=== PATIENT | female | born 1930 | race Caucasian/White ===

== ENCOUNTER → 2017-09-26 | Outpatient (CLI) | payer OTHER ==
[~2017-09-26] MED LIST: AMLO10 PO; AMLO5 PO; ATEN25 PO; Antivert25 MG PO; Aspir 8181 MG PO; Aspir-Low81 MG PO; BP MED; CALCAVITD PO; CENTRUM SILVER1 EAC2 PO; CLOP75 PO; FISH OIL 1,2001 EACH PO; HYDACE5 PO; HYDCHL12.5 PO; LOSA50 PO; MELO7.5 PO; METO25 PO; MULVITMINF PO; OMEP20ER PO; PRAV20 PO; Prilosec Otc20 MG PO; SULF10OPSA OD; SULF10OPSA OS; SULF10OPSA OU; SUPER CALCIUM1 EACH PO; TRIA80TC TOP; Zofran4 MG PO; [UNRECOGNIZED DRUG - OTHER]
[2017-09-26 12:47] LABS: Source, Urine Clean Catch
[2017-09-26 14:11] LABS: Uric Acid Crystals Few /hpf
[2017-09-26 14:12] LABS: Amorphous Mod (0-Heavy)
[2017-09-26 14:13] LABS: Red Blood Cells, Urine 0-2 /hpf (0-2); White Blood Cells, Urine 0-2 /hpf (0-5)
[2017-09-26 14:14] LABS: Bacteria Few /hpf; Squamous Epithelial Cells Not Seen /hpf (Few)
[2017-09-26 16:05] LABS: Protein, Urine Random 25.9 mg/dL (0.0-11.9)
== END | disposition home or self-care (01) ==
LOC: OLS 12:26 → LAB SHORT 12:26
PROVIDERS: Internal Medicine
DX: N28.9 Disorder of kidney and ureter, unspecified (principal)
CPT/HCPCS: 81015; 82570; 84156

== ENCOUNTER 2018-12-10 16:02 | Emergency (ER) | payer OTHER ==
[~2018-12-10] VITALS: Ht 165.1 cm; Wt 51.7 kg
[~2018-12-10 16:02] MED LIST changes: +Amlodipine Bes2.5 MG PO
[2018-12-10] MEDS ORDERED: Amlodipine Bes2.5 MG PO (16:42)
[2018-12-10] MEDS ORDERED: PANT20 PO (16:42)
[2018-12-10 16:50] LABS: BASOPHILS ABSOLUTE AUTO 0.07 K/mm3 (0.00-0.23); BASOPHILS PERCENT AUTO 1 % (0-2); EOSINOPHILS ABSOLUTE AUTO 0.68 K/mm3 (0.00-0.68); EOSINOPHILS PERCENT AUTO 8 % (0-6); Hemoglobin 12.4 g/dL (11.5-16.0); IMMATURE GRAN ABSOLUTE AUTO 0.03 K/mm3 (0.00-0.10); IMMATURE GRAN PERCENT AUTO 0 % (0-1); LYMPHOCYTES PERCENT AUTO 24 % (21-46); MONOCYTES ABSOLUTE AUTO 0.88 K/mm3 (0.16-1.47); MONOCYTES PERCENT AUTO 11 % (4-13); Mean Corpuscular HGB 28.6 pg (26.0-34.0); Mean Corpuscular HGB Conc 32.6 g/dL (31.5-36.5); Mean Corpuscular Volume 88 fL (80-100); NEUTROPHILS ABSOLUTE AUTO 4.68 K/mm3 (1.96-9.15); NEUTROPHILS PERCENT AUTO 56 % (41-73); Platelet Count 128 K/mm3 (150-400); RDW Coefficient Variation 13.2 % (11.7-14.2); RDW Standard Deviation 42.6 fL (35.1-46.3); Red Blood Cell Count 4.34 M/mm3 (3.80-5.20); White Blood Cell Count 8.34 K/mm3 (4.00-11.30)
[2018-12-10 17:00] LABS: International Normalized Ratio 0.98; Prothrombin Time Results 10.4 Sec (9.7-11.5)
[2018-12-10 17:22] LABS: Albumin, Blood 3.8 g/dL (3.4-5.0); Bilirubin, Total 0.4 mg/dL (0.1-1.0); Bun/Creatinine Ratio 18.2 (12.0-20.0); Calcium, Blood 8.6 mg/dL (8.5-10.1); Creatinine, Blood 2.64 mg/dL (0.40-1.00); Globulin, Blood 3.7 g/dL (2.2-4.0); Potassium, Blood 3.9 mmol/L (3.5-5.5); Total Protein, Blood 7.5 g/dL (6.4-8.2)
== END 2018-12-10 18:16 | disposition home or self-care (01) ==
LOC: ER 16:02
PROVIDERS: Physician Assistant
DX: S00.01XA Abrasion of scalp, initial encounter (principal); W18.30XA Fall on same level, unspecified, initial encounter; Z88.8 Allergy status to other drugs, medicaments and biological substances; Z79.899 Other long term (current) drug therapy; I10 Essential (primary) hypertension
CPT/HCPCS: 36415; 70450; 72125; 80053; 85025; 85610; 93005; 93010; 99284-25

== ENCOUNTER 2018-12-12 07:38 | Observation (INO) | payer OTHER ==
[~2018-12-12] VITALS: Ht 160 cm; Wt 55.1 kg
[~2018-12-12 07:38] MED LIST changes: +PANT20 PO
[2018-12-12 08:31] LABS: BASOPHILS ABSOLUTE AUTO 0.08 K/mm3 (0.00-0.23); BASOPHILS PERCENT AUTO 1 % (0-2); EOSINOPHILS ABSOLUTE AUTO 0.73 K/mm3 (0.00-0.68); EOSINOPHILS PERCENT AUTO 10 % (0-6); Hematocrit 39.9 % (33.0-51.0); Hemoglobin 12.7 g/dL (11.5-16.0); IMMATURE GRAN ABSOLUTE AUTO 0.02 K/mm3 (0.00-0.10); IMMATURE GRAN PERCENT AUTO 0 % (0-1); LYMPHOCYTES ABSOLUTE AUTO 1.55 K/mm3 (0.84-5.20); LYMPHOCYTES PERCENT AUTO 21 % (21-46); MONOCYTES ABSOLUTE AUTO 0.75 K/mm3 (0.16-1.47); MONOCYTES PERCENT AUTO 10 % (4-13); Mean Corpuscular HGB 27.9 pg (26.0-34.0); Mean Corpuscular HGB Conc 31.8 g/dL (31.5-36.5); Mean Corpuscular Volume 88 fL (80-100); Mean Platelet Volume 10.9 fL (9.1-12.4); NEUTROPHILS PERCENT AUTO 57 % (41-73); Platelet Count 130 K/mm3 (150-400); RDW Coefficient Variation 13.2 % (11.7-14.2); RDW Standard Deviation 42.3 fL (35.1-46.3); Red Blood Cell Count 4.56 M/mm3 (3.80-5.20); White Blood Cell Count 7.23 K/mm3 (4.00-11.30)
[2018-12-12] MEDS ORDERED: Aspir 8181 MG PO (08:35)
[2018-12-12 08:58] LABS: Alanine Aminotransfer (ALT/SGP 12 U/L (12-78); Albumin, Blood 3.7 g/dL (3.4-5.0); Albumin/Globulin Ratio 0.9 (0.8-1.8); Alk Phos 85 U/L (50-136); Anion Gap 9 mmol/L (6-16); Aspartate Aminotrans (AST/SGOT 15 U/L (12-37); Bilirubin, Total 0.4 mg/dL (0.1-1.0); Blood Urea Nitrogen 54 mg/dL (8-24); Bun/Creatinine Ratio 19.4 (12.0-20.0); CO2, Blood 28 mmol/L (21-32); Calcium, Blood 9.1 mg/dL (8.5-10.1); Chloride, Blood 102 mmol/L (98-108); Creatinine, Blood 2.78 mg/dL (0.40-1.00); Globulin, Blood 3.9 g/dL (2.2-4.0); Glomerular Filtration Rate 17 (60-); Glucose, Blood 98 mg/dL (70-99); Potassium, Blood 3.8 mmol/L (3.5-5.5); Sodium, Blood 139 mmol/L (136-145); Total Protein, Blood 7.6 g/dL (6.4-8.2); Troponin I <0.015 ng/mL (0.000-0.040)
[2018-12-12] MEDS ORDERED: HYDCHL12.5 PO (12:06)
[2018-12-12] MEDS ORDERED: CLOP75 PO (12:07)
--- NOTE | 2018-12-12 16:55 | NUR ---
ADMITTED TODAY TO RM 333 FROM THE ER. HER 3 INITIAL VISITORS HAVE LEFT AND NOW SHE JUST HAS 1 NEICE IN THE ROOM. SHE HAS EATEN A SMALL [employer]DS LUNCH BROUGHT IN BY FAMILY AND A YOGURT. SHE IS LOOKING FORWARD TO DINNER. SHE SAYS ALL HER SYMPTOMS SHE HAD THIS MORNING ARE GONE. SHE WORKED WITH PT. 1 ASSIST WITH A GAIT BELT AND A WALKER. NO COMPLAINTS.
--- NOTE | 2018-12-12 20:30 | NUR ---
PT LAYING IN BED WATCHING TV. STATES SHE DOES NOT FEEL ANY DEFICIT ANY MORE THAT THEY ALL RESOLVED. 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 SHE STATES SHE FEELS FINE, DENIES ANY HEADACHES, VISION CHANGES, OR OTHER NEURO SYMTOMS AT THIS TIME. CALL LIGHT IN REACH, WILL CONTINUE TO MONTIOR.
[2018-12-13 05:17] LABS: BASOPHILS ABSOLUTE AUTO 0.06 K/mm3 (0.00-0.23); BASOPHILS PERCENT AUTO 1 % (0-2); EOSINOPHILS ABSOLUTE AUTO 0.62 K/mm3 (0.00-0.68); EOSINOPHILS PERCENT AUTO 11 % (0-6); Hematocrit 36.4 % (33.0-51.0); Hemoglobin 11.8 g/dL (11.5-16.0); IMMATURE GRAN ABSOLUTE AUTO 0.01 K/mm3 (0.00-0.10); IMMATURE GRAN PERCENT AUTO 0 % (0-1); LYMPHOCYTES ABSOLUTE AUTO 1.37 K/mm3 (0.84-5.20); LYMPHOCYTES PERCENT AUTO 23 % (21-46); MONOCYTES ABSOLUTE AUTO 0.69 K/mm3 (0.16-1.47); MONOCYTES PERCENT AUTO 12 % (4-13); Mean Corpuscular HGB 28.4 pg (26.0-34.0); Mean Corpuscular HGB Conc 32.4 g/dL (31.5-36.5); Mean Corpuscular Volume 88 fL (80-100); NEUTROPHILS ABSOLUTE AUTO 3.17 K/mm3 (1.96-9.15); NEUTROPHILS PERCENT AUTO 54 % (41-73); Platelet Count 125 K/mm3 (150-400); RDW Coefficient Variation 13.2 % (11.7-14.2); RDW Standard Deviation 42.6 fL (35.1-46.3); Red Blood Cell Count 4.15 M/mm3 (3.80-5.20); White Blood Cell Count 5.92 K/mm3 (4.00-11.30)
[2018-12-13 05:43] LABS: Bun/Creatinine Ratio 20.2 (12.0-20.0); Calcium, Blood 8.5 mg/dL (8.5-10.1); Creatinine, Blood 2.48 mg/dL (0.40-1.00); Potassium, Blood 3.8 mmol/L (3.5-5.5)
--- NOTE | 2018-12-13 06:29 | NUR ---
SHIFT SUMMARY: PATIENT SLEPT THROUGHOUT THE NIGHT, HAD NO ACUTE CHANGES OR CONCERNS. MEDS GIVEN PER EMAR. NO PAIN NOTED, PATIENT REMAINED COMFORTABLE WITH NO EVENTS. WILL REPORT TO DAY SHIFT RN
[2018-12-13 08:13] LABS: CHOL/HDL RATIO 4.5; Cholesterol 222 mg/dL (50-200); HDL Cholesterol 49 mg/dL (>39); LDL/HDL RATIO 2.9; Low Density Lipoprotein Chol 143 mg/dL (0-110); Triglycerides 148 mg/dL (30-160); Very Low Density Lipoprot Chol 29 mg/dL (6-32)
--- NOTE | 2018-12-13 17:07 | NUR ---
SHIFT SUMMARY PT HAS CHEST XR DONE THIS SHIFT. PT DESATED INTO THE 80S WHILE WORKING WITH OT. DR. SHARMA AWARE. NO OTHER CHANGES IN ASSESSMENT AT THIS TIME. PT AMBULATING WELL A SBA. ALARM ON DUE TO PT GETTING OUT OF BED IND. VSS. WILL CONTINUE TO MONITOR UNTIL TURNOVER IS COMPLETE.
--- NOTE | 2018-12-13 17:44 | NUR ---
[facility] visit: Mrs. Martinez was surrounded by numerous, loving family members. She engaged well and appeared quite sharp, mentally. She is the oldest of 7 children and has taken pride in the fact that she has been fairly healthy. She lives with her dtr who is a good support. Pt states that she is hopefull for complete recovery. She was raised Sikhism, but is no longer practicing. No fears or concerns presented. She was talkative and pleasant. Prayer for continued healing provided. [employer] will remain available.
--- NOTE | 2018-12-14 04:10 | NUR ---
SHIFT SUMMARY NO CHANGES OVERNIGHT. PT HAS SLEPT MOST OF THE NIGHT. DENIES NEEDS WHEN ASKED. NO CHANGES ON TELE OVERNIGHT. PT HAS BEEN CALLING APPROPIRATELY. 1PA TO THE BATHROOM. VITALS STB[place]. ASSESSMENT UNCHANGED. WILL CONTINUE TO MONITOR AND REPORT TO ONCOMING RN.
[2018-12-14 05:15] LABS: BASOPHILS ABSOLUTE AUTO 0.07 K/mm3 (0.00-0.23); BASOPHILS PERCENT AUTO 1 % (0-2); EOSINOPHILS ABSOLUTE AUTO 0.68 K/mm3 (0.00-0.68); EOSINOPHILS PERCENT AUTO 12 % (0-6); Hematocrit 38.6 % (33.0-51.0); Hemoglobin 12.4 g/dL (11.5-16.0); IMMATURE GRAN ABSOLUTE AUTO 0.01 K/mm3 (0.00-0.10); IMMATURE GRAN PERCENT AUTO 0 % (0-1); LYMPHOCYTES ABSOLUTE AUTO 1.36 K/mm3 (0.84-5.20); LYMPHOCYTES PERCENT AUTO 24 % (21-46); MONOCYTES ABSOLUTE AUTO 0.55 K/mm3 (0.16-1.47); MONOCYTES PERCENT AUTO 10 % (4-13); Mean Corpuscular HGB 28.3 pg (26.0-34.0); Mean Corpuscular HGB Conc 32.1 g/dL (31.5-36.5); Mean Corpuscular Volume 88 fL (80-100); Mean Platelet Volume 10.9 fL (9.1-12.4); NEUTROPHILS ABSOLUTE AUTO 3.08 K/mm3 (1.96-9.15); NEUTROPHILS PERCENT AUTO 54 % (41-73); Platelet Count 131 K/mm3 (150-400); RDW Standard Deviation 41.9 fL (35.1-46.3); Red Blood Cell Count 4.38 M/mm3 (3.80-5.20); White Blood Cell Count 5.75 K/mm3 (4.00-11.30)
[2018-12-14 05:33] LABS: Albumin, Blood 3.3 g/dL (3.4-5.0); Anion Gap 7 mmol/L (6-16); Blood Urea Nitrogen 58 mg/dL (8-24); Bun/Creatinine Ratio 20.5 (12.0-20.0); CO2, Blood 29 mmol/L (21-32); Calcium, Blood 8.6 mg/dL (8.5-10.1); Chloride, Blood 103 mmol/L (98-108); Creatinine, Blood 2.83 mg/dL (0.40-1.00); Glomerular Filtration Rate 17 (60-); Glucose, Blood 96 mg/dL (70-99); Phosphorus, Blood 3.3 mg/dL (2.5-4.9); Sodium, Blood 139 mmol/L (136-145)
[2018-12-14] MEDS ORDERED: ALBU90OI INH (12:19)
[2018-12-14] MEDS ORDERED: Aspirin EC81 MG PO (12:22)
[2018-12-14] MEDS ORDERED: ATOR80 PO (12:23)
--- NOTE | 2018-12-14 13:56 | NUR ---
PT DISCHARGED PT DISCHARGED AT 1356. PT IN STABLE CONDITION WITH VSS. PT EDUCTED ON DC INSTRUCTIONS & DENIES FURTHER NEEDS FOR INSTRUCTION. NO CHANGES IN ASSESSMENT PRIOR TO DC. PT IV REMOVED & INTACT. WHEELED OUT BY AIDE & DRIVEN HOME BY NIECE.
== END 2018-12-14 14:08 | disposition home health service (06) ==
LOC: ER 07:38 → ERHOLD 09:55 → MEDS 12:32 → EDPENDDIS 12-14 12:08 → ENPENDDIS 12-14 12:08 → MEDS 12-14 14:08
PROVIDERS: Emergency Medicine; Internal Medicine; ADMIT Internal Medicine
DX: R29.898 Other symptoms and signs involving the musculoskeletal system (principal); R20.0 Anesthesia of skin; I65.23 Occlusion and stenosis of bilateral carotid arteries; I11.0 Hypertensive heart disease with heart failure; N18.3 Chronic kidney disease, stage 3 (moderate); E78.5 Hyperlipidemia, unspecified; J44.9 Chronic obstructive pulmonary disease, unspecified; Z86.73 Personal history of transient ischemic attack (TIA), and cerebral infarction without residual deficits; Z87.891 Personal history of nicotine dependence; Z88.8 Allergy status to other drugs, medicaments and biological substances; Z79.899 Other long term (current) drug therapy; Z79.01 Long term (current) use of anticoagulants; Z79.82 Long term (current) use of aspirin
CPT/HCPCS: 36415; 70450; 70544; 70547; 70551; 71046; 80048; 80053; 80061; 80069; 82550; 84484; 85025; 93005; 93010; 93306; 94760; 94761; 96372; 97110; 97116; 97162; 97166; 97530; 97535; 99285-25; C9113; G0378; J1650

== ENCOUNTER 2019-03-04 09:41 | Day surgery (SDC) | payer OTHER ==
[~2019-03-04] VITALS: Ht 160 cm; Wt 52.5 kg
[~2019-03-04 09:41] MED LIST changes: +ALBU90OI INH; +ATOR80 PO; +Aspirin EC81 MG PO
[2019-03-04] MEDS ORDERED: Hydrochloroth12.5 MG (10:55)
[2019-03-04] MEDS ORDERED: VITAMIN D32000 UNIT (10:55)
[2019-03-04] MEDS ORDERED: MAGCHL64ER (10:56)
[2019-03-04] MEDS ORDERED: POTA10T (10:56)
--- NOTE | 2019-03-04 12:34 | NUR ---
03/04/19 1234 Inez Galan (Trista 9ML SALINE INJECTED.
== END 2019-03-04 12:59 | disposition home or self-care (01) ==
LOC: ORSCSDS 09:41
PROVIDERS: Internal Medicine Gastroenterology
PROC: 0DBN8ZX Excision of Sigmoid Colon, Via Natural or Artificial Opening Endoscopic, Diagnostic (ICD-10-PCS; principal; 2019-03-04 11:15)
PROC: 0DBE8ZX Excision of Large Intestine, Via Natural or Artificial Opening Endoscopic, Diagnostic (ICD-10-PCS; principal; 2019-03-04 11:15)
PROC: 0DBK8ZX Excision of Ascending Colon, Via Natural or Artificial Opening Endoscopic, Diagnostic (ICD-10-PCS; principal; 2019-03-04 11:15)
DX: R63.4 Abnormal weight loss (principal); R19.7 Diarrhea, unspecified; K21.9 Gastro-esophageal reflux disease without esophagitis; K63.5 Polyp of colon; K29.70 Gastritis, unspecified, without bleeding; K57.30 Diverticulosis of large intestine without perforation or abscess without bleeding; K64.8 Other hemorrhoids; K63.89 Other specified diseases of intestine; K44.9 Diaphragmatic hernia without obstruction or gangrene; I10 Essential (primary) hypertension; E78.5 Hyperlipidemia, unspecified; Z86.010 Personal history of colon polyps; Z80.0 Family history of malignant neoplasm of digestive organs; Z87.891 Personal history of nicotine dependence; J44.9 Chronic obstructive pulmonary disease, unspecified; Z79.899 Other long term (current) drug therapy; Z79.82 Long term (current) use of aspirin
CPT/HCPCS: 88305; J2704; J7120

== ENCOUNTER 2020-09-26 09:19 | Emergency (ER) | payer OTHER ==
[~2020-09-26] VITALS: Ht 154.9 cm; Wt 51.7 kg
[~2020-09-26 09:19] MED LIST changes: +Hydrochloroth12.5 MG; +MAGCHL64ER; +POTA10T; +VITAMIN D32000 UNIT
[2020-09-26 11:07] LABS: BASOPHILS ABSOLUTE AUTO 0.06 K/mm3 (0.00-0.23); BASOPHILS PERCENT AUTO 1 % (0-2); EOSINOPHILS ABSOLUTE AUTO 0.52 K/mm3 (0.00-0.68); EOSINOPHILS PERCENT AUTO 10 % (0-6); Hemoglobin 12.4 g/dL (11.5-16.0); IMMATURE GRAN ABSOLUTE AUTO 0.01 K/mm3 (0.00-0.10); IMMATURE GRAN PERCENT AUTO 0 % (0-1); LYMPHOCYTES ABSOLUTE AUTO 1.08 K/mm3 (0.84-5.20); LYMPHOCYTES PERCENT AUTO 20 % (21-46); MONOCYTES ABSOLUTE AUTO 0.46 K/mm3 (0.16-1.47); MONOCYTES PERCENT AUTO 9 % (4-13); Mean Corpuscular HGB 27.8 pg (26.0-34.0); Mean Corpuscular HGB Conc 31.8 g/dL (31.5-36.5); Mean Corpuscular Volume 87 fL (80-100); Mean Platelet Volume 11.1 fL (9.1-12.4); NEUTROPHILS ABSOLUTE AUTO 3.29 K/mm3 (1.96-9.15); NEUTROPHILS PERCENT AUTO 61 % (41-73); Platelet Count 99 K/mm3 (150-400); RDW Coefficient Variation 13.2 % (11.7-14.2); RDW Standard Deviation 42.3 fL (35.1-46.3); Red Blood Cell Count 4.46 M/mm3 (3.80-5.20); White Blood Cell Count 5.42 K/mm3 (4.00-11.30)
[2020-09-26 11:26] LABS: International Normalized Ratio 1.13; Prothrombin Time Results 12.1 Sec (9.7-11.5)
[2020-09-26 11:30] LABS: Albumin, Blood 3.6 g/dL (3.4-5.0); Bilirubin, Total 0.5 mg/dL (0.1-1.0); Bun/Creatinine Ratio 16.3 (12.0-20.0); Calcium, Blood 8.5 mg/dL (8.5-10.1); Creatinine, Blood 2.83 mg/dL (0.40-1.00); Globulin, Blood 3.7 g/dL (2.2-4.0); Total Protein, Blood 7.3 g/dL (6.4-8.2)
== END 2020-09-26 13:16 | disposition home or self-care (01) ==
LOC: ER 09:19
PROVIDERS: Emergency Medicine
DX: I73.9 Peripheral vascular disease, unspecified (principal); I10 Essential (primary) hypertension; J44.9 Chronic obstructive pulmonary disease, unspecified; Z79.82 Long term (current) use of aspirin; Z79.899 Other long term (current) drug therapy; Z88.8 Allergy status to other drugs, medicaments and biological substances; Z79.02 Long term (current) use of antithrombotics/antiplatelets
CPT/HCPCS: 36415; 80053; 85025; 85610; 93925; 99285-25

== ENCOUNTER 2020-10-19 04:06 | Inpatient (IN) | payer MEDICARE, OTHER ==
[~2020-10-19] VITALS: Ht 160 cm; Wt 52.7 kg
[~2020-10-19 04:06] MED LIST changes: +HYDROCHLOROTH12.5 MG PO; -Hydrochloroth12.5 MG
[2020-10-19 04:30] LABS: Calcium, Ionized (POC) 1.07 mmol/L (1.10-1.46); Chloride (POC) 108 mmol/L (98-108); Glucose (ISTAT POC) 181 mg/dL (70-99); Hemoglobin (POC) 13.9 g/dL (12.0-16.0); Potassium (POC) 4.5 mmol/L (3.5-5.5); Sodium (POC) 140 mmol/L (135-148); Total CO2 (POC) 24 mmol/L (21-32)
[2020-10-19 04:34] LABS: BASOPHILS ABSOLUTE AUTO 0.15 K/mm3 (0.00-0.23); BASOPHILS PERCENT AUTO 1 % (0-2); EOSINOPHILS ABSOLUTE AUTO 0.97 K/mm3 (0.00-0.68); EOSINOPHILS PERCENT AUTO 8 % (0-6); Hematocrit 40.3 % (33.0-51.0); Hemoglobin 12.7 g/dL (11.5-16.0); IMMATURE GRAN ABSOLUTE AUTO 0.03 K/mm3 (0.00-0.10); IMMATURE GRAN PERCENT AUTO 0 % (0-1); LYMPHOCYTES PERCENT AUTO 46 % (21-46); MONOCYTES ABSOLUTE AUTO 0.69 K/mm3 (0.16-1.47); MONOCYTES PERCENT AUTO 5 % (4-13); Mean Corpuscular HGB Conc 31.5 g/dL (31.5-36.5); Mean Corpuscular Volume 89 fL (80-100); Mean Platelet Volume 12.3 fL (9.1-12.4); NEUTROPHILS ABSOLUTE AUTO 5.17 K/mm3 (1.96-9.15); NEUTROPHILS PERCENT AUTO 40 % (41-73); Platelet Count 126 K/mm3 (150-400); RDW Coefficient Variation 13.5 % (11.7-14.2); RDW Standard Deviation 44.3 fL (35.1-46.3); Red Blood Cell Count 4.54 M/mm3 (3.80-5.20); White Blood Cell Count 12.91 K/mm3 (4.00-11.30)
[2020-10-19 04:43] LABS: Source, Urine Catheter
[2020-10-19 04:49] LABS: International Normalized Ratio 1.22
[2020-10-19 04:50] LABS: Appearance, Urine Hazy (Clear); Bilirubin, Urine Neg (Neg); Blood, Urine 4+ (Neg); Color, Urine Yellow (P-Yellow); Glucose Qualitative, Urine Neg (Neg); Ketones, Urine Neg (Neg); Leukocyte Esterase, Urine 3+ (Neg); Nitrite, Urine Pos (Neg); Protein, Urine 3+ (Neg); Specific Gravity, Urine 1.015 (1.003-1.022); Urobilinogen, Urine NORM (Normal)
[2020-10-19 04:52] LABS: PCO2 Arterial 52.4 mmHg (35-45); PO2 Arterial 97.6 mmHg (80-100); pH Blood Arterial 7.23 (7.35-7.45)
[2020-10-19 04:52] LABS: Albumin, Blood 3.6 g/dL (3.4-5.0); Bilirubin, Total 0.4 mg/dL (0.1-1.0); Calcium, Blood 7.7 mg/dL (8.5-10.1); Creatinine, Blood 2.8 mg/dL (0.40-1.00); Globulin, Blood 3.6 g/dL (2.2-4.0); Potassium, Blood 4.4 mmol/L (3.5-5.5); Total Protein, Blood 7.2 g/dL (6.4-8.2); Troponin I 0.021 ng/mL (0.000-0.040)
[2020-10-19 04:59] LABS: Bacteria Mod /hpf; White Blood Cells, Urine 50-100 /hpf (0-5)
[2020-10-19 05:00] LABS: Squamous Epithelial Cells Few /hpf (Few)
[2020-10-19 05:01] LABS: U Amphetamine Screen Not Detected; U Barbituate Screen Not Detected; U Benzodiazapine Screen Not Detected; U Buprenorphine Screen Not Detected; U Cannabinoids Screen Not Detected; U Cocaine Screen Not Detected; U Methadone Screen Not Detected; U Methamphetamine Screen Not Detected; U Opiates Screen Not Detected; U Oxycodone Screen Not Detected; U Phencyclidine Screen Not Detected; U Propoxyphene Screen Not Detected
[2020-10-19] MEDS ORDERED: ATOR40TA PO (05:01)
[2020-10-19] MEDS ORDERED: LOSA25 PO (05:03)
[2020-10-19] MEDS ORDERED: POTA10T PO (05:06)
[2020-10-19] MEDS ORDERED: STIOLTO RESPIMAT4 G1 INH (05:06)
[2020-10-19 05:55] LABS: SARS-Cov-2 (COVID-19) PCR, MMC NEGATIVE (NEGATIVE)
--- NOTE | 2020-10-19 08:00 | NUR ---
ASSESSMENT- PT ADMITTED TO ICU FROM ER ON [facility]. ORALLY INTUBATED, TUBE SECURE. TOLERATING VENT SETTINGS, RESPIRATIONS UNLABORED, EVEN. LUNGS CLEAR WITH DIMISHED SOUNDS LEFT BASE. ABLE TO OPEN EYES TO NAME, FOLLOWS COMMANDS TO MOVE EXTREMITIES. EXPLAINED PLAN OF CARE. PUPILS UNEQUAL, REACTIVE. APPICAL IRREGULAR, SR WITH BBB WITH PACS. SBP 110'S. PIV X 2 INTACT. PROPOFOL GTT FOR SEDATION INCREASED TO 40 MCG/KG/MIN. COPIOUS ORAL SECRETIONS. ABDOMEN SOFT, OGT CLAMPED, AIR BOLUS HEARD OVER EPIGASTRUM, SCANT YELLOW SECRETIONS FROM TUBE. UO VIA BOUDREAUX. LASIX GIVEN. HEPARIN GTT STARTED PER ORDERS AT 13 UNITS/KG/HR NO BOLUS. PT'S DAUGHTER AT BEDSIDE-UPDATED, EXPLAINED PLAN OF CARE. STATES PT DOES HAVE POLST AND DID NOT WANT TO BE ON RESPIRATOR BUT DAUGHTER STATES WOULD LEAVE RESPIRATOR ON TODAY. BILATERAL WRIST RESTRAINTS, EXTUBATION RISK, REACHES FOR TUBES. REPOSITIONED.
--- NOTE | 2020-10-19 10:30 | NUR ---
DR. SANTANA HERE-UPDATED. SEE ORDERS. VSS. TOLERATING VENT
--- NOTE | 2020-10-19 11:24 | NUR ---
VSS. BEDSIDE ECHO DONE. EF 35% REPOSITIONED. C/O PAIN-RX GIVEN WITH IMPROVEMENT. DECREASING SEDATION FOR WEAN TRIAL
--- NOTE | 2020-10-19 12:25 | NUR ---
UPDATE TO DR. SANTANA, PHYSICIAN CALLED PT'S DAUGHTER-WILL BE HERE AT 1400. OK TO EXTUBATE IF ABLE. PT ON CPAP-TOLERATING WELL. TIDAL VOLUMES 275 CC RESP RATE 15-[address] STRICKLAND CONSULTED, SECOND DOSE LASIX GIVEN PER ORDERS. PLANS TO EXTUBATE. PT RESTING COMFORTABLE.
[2020-10-19 13:08] LABS: CPK Creatine Kinase 96 U/L (26-193)
--- NOTE | 2020-10-19 13:29 | NUR ---
Echocardiogram completed.
--- NOTE | 2020-10-19 13:45 | NUR ---
TOLERATING VENT SETTINGS. QUIET, AWAKENS TO NAME. VSS. UO 475 TOTAL
--- NOTE | 2020-10-19 14:01 | NUR ---
PT'S DAUGHTER HERE, DISCUSSED CARE WITH PALLIATIVE CARE. DR STRICKLAND HERE-PLANS FOR EXTUBATION. PT AWAKENS EASILY, MOTIONING TO TAKE TUBE OUT. FOLLOWS DIRECTIONS. TROPONIN ELEVATED, UPDATED TO DR. STRICKLAND.
--- NOTE | 2020-10-19 14:32 | NUR ---
PT EXTUBATED TO 3L/MIN NC. AWAKE, ALERT, STATING "I DO NOT WANT TO LIVE" "I DON'T WANT TO GO HOME". EXPLAINED PLAN OF CARE, REASSURANCE GIVEN. LUNGS CLEAR, DIMINISHED LEFT BASE. SINUS TACH WITH BBB. SKIN W/D NO DISTRESS
--- NOTE | 2020-10-19 14:50 | NUR ---
UPDATE TO DR. SANTANA REGARDING EXTUBATION, VS, TROPONIN. PLANS FOR TRANSFER TO MEDICAL STATUS IF REMAINS STABLE IN TWO HOURS. PT VISITING WITH FAMILY. NO DISTRESS
--- NOTE | 2020-10-19 16:30 | NUR ---
VSS. ABLE TO REST. AWAKENS EASILY. DENIES COMPLAINTS. RESPIRATIONS UNLABORED.
--- NOTE | 2020-10-19 18:32 | NUR ---
REPOSITIONED, DENIES COMPLAINTS. BEDSIDE SWALLOW DONE-NO S/S ASPIRATION. STATES NOT HUNGRY RIGHT NOW, WANTS TO REST. CHANGED TO MEDICAL STATUS. SR WITH BBB. CONTINUE TO MONITOR
--- NOTE | 2020-10-19 19:26 | NUR ---
REPORT TO QUIANA CHIU AND YAMILETH RN-MEDICAL RN. PT TO TRANSFER TO [facility]. VSS. DENIES SOB, RESPIRATIONS UNLABORED.
--- NOTE | 2020-10-19 20:08 | NUR ---
TRANSFER NOTE HANDOFF RECEIVED FROM ICU NURSE YOLI. PT TRANSFERED TO FLOOR VIA GURNEY. PT ORIENTED TO MEDICAL UNIT. CALL BUTTON WITHIN REACH. PERSONAL POSSESSIONS WITH PT. PT REFUSING TELEMETRY, HOSPITALIST INFORMED - ORDER DC'D.
[2020-10-19 21:10] LABS: CPK Creatine Kinase 79 U/L (26-193)
--- NOTE | 2020-10-20 04:25 | NUR ---
SHIFT SUMMARY ADMITTED FOR CHF,UTI, AND POSSIBLE PNEUMONIA. DNR/DNI. PLAN IS FOR PALLIATIVE CARE CONSULT FOR FAMILY TO DECIDE PLAN OF CARE. PT REFUSED TELEMETRY MONITORING, HOSPITALIST INFORMED. BOUDREAUX IS PATENT AND DRAINING. 3 LPM O2 VIA NC. CLEAR LIQUID DIET, ADVANCE TOLERATED. SHE WAS TRANSFERED TO THIS FLOOR FROM ICU THIS SHIFT.
[2020-10-20 04:55] LABS: BASOPHILS ABSOLUTE AUTO 0.01 K/mm3 (0.00-0.23); BASOPHILS PERCENT AUTO 0 % (0-2); EOSINOPHILS PERCENT AUTO 0 % (0-6); Hematocrit 34.7 % (33.0-51.0); Hemoglobin 11.3 g/dL (11.5-16.0); IMMATURE GRAN ABSOLUTE AUTO 0.04 K/mm3 (0.00-0.10); IMMATURE GRAN PERCENT AUTO 0 % (0-1); LYMPHOCYTES ABSOLUTE AUTO 0.82 K/mm3 (0.84-5.20); LYMPHOCYTES PERCENT AUTO 9 % (21-46); MONOCYTES ABSOLUTE AUTO 0.67 K/mm3 (0.16-1.47); MONOCYTES PERCENT AUTO 7 % (4-13); Mean Corpuscular HGB Conc 32.6 g/dL (31.5-36.5); Mean Corpuscular Volume 86 fL (80-100); Mean Platelet Volume 12.2 fL (9.1-12.4); NEUTROPHILS PERCENT AUTO 83 % (41-73); Platelet Count 103 K/mm3 (150-400); RDW Coefficient Variation 13.7 % (11.7-14.2); RDW Standard Deviation 42.9 fL (35.1-46.3); Red Blood Cell Count 4.03 M/mm3 (3.80-5.20); White Blood Cell Count 9.24 K/mm3 (4.00-11.30)
[2020-10-20 05:22] LABS: Albumin, Blood 3.2 g/dL (3.4-5.0); Bilirubin, Total 0.6 mg/dL (0.1-1.0); Bun/Creatinine Ratio 14.7 (12.0-20.0); Creatinine, Blood 3.61 mg/dL (0.40-1.00); Globulin, Blood 3.3 g/dL (2.2-4.0); Potassium, Blood 4.6 mmol/L (3.5-5.5); Total Protein, Blood 6.5 g/dL (6.4-8.2)
--- NOTE | 2020-10-20 09:08 | NUR ---
PT GAVE TAPER AND FLOATER CRISTIG PERMISSION TO ASSESS AND TREAT
--- NOTE | 2020-10-20 11:33 | NUR ---
PT/OT EVAL AND TREAT RECEIVED V.O. FROM DR. SANTANA FOR PT/OT TO EVAL AND TREAT. ORDERS UPDATED.
--- NOTE | 2020-10-20 11:33 | NUR ---
BLADDER TRAINING/DC BOUDREAUX RECEIVED V.O. FROM DR. SANTANA TO INITIATE BLADDER TRAINING AND DC BOUDREAUX. ORDERS UPDATED.
--- NOTE | 2020-10-20 12:00 | NUR ---
Hand Off Patient handed off to ARAM Flores. A/Ox3, pleasant and cooperative. Able to make needs known. Had PT eval, patient tolerated well. Diet advanced to Cardiac Diet per patient request. Meds whole with water. IV patent. Currently has kumar intact, will remove once bladder training completed per Dr. Barahona. Daughter Marisabel and Sister Alexus Willson has been updated on patient's status. Marisabel . Aelxus Willson . Dangling at edge of bed. Voiced readiness to be discharged home. Remains on 3L NC, plan to titrate down.
--- NOTE | 2020-10-20 17:45 | NUR ---
SHIFT SUMMARY- I ASSUMED CARE OF THIS PT THIS AFTERNOON. BEGAN BLADDER TRAININ TO D/C KANIKA. PT IS PLESANT AND COOPERATIVE. SHE HAS BEEN EATING APPROX 50% OF HER MEALS. SHE HAD A BM THIS SHIFT. SHE WORKED WITH PT AND TOLERATED WELL. HER BED IS IN THE LOW POSITION AND CALL LIGHT IS WITIN REACH.
--- NOTE | 2020-10-20 18:33 | NUR ---
Spiritual care note: Pt alone in room and appears frail. She tells me she doesn't know why she is hospitalized and wants "to go home." She allowed me to pray for her, but did not engage in conversation. She thanked me for visit. I will remain available to pt and family.
--- NOTE | 2020-10-21 04:09 | NUR ---
SHIFT SUMMARY ADMITTED FOR CHF EXAC/UTI/PNEUMONIA. DNR CODE. PLAN IS TO DEVELOP A CARE PLAN FOR AFTER DC. PT WILL THEN DC HOME WITH HER DAUGHTER, HOPEFULLY TODAY. PT BLADDER TRAINED THIS SHIFT. KANIKA MCCANN'D THIS SHIFT. PT THEN HAD A LARGE UNMEASURED VOID IN HER ATTENDS. SHE HAS BEEN WORKING W/PHYSICAL & OCCUPATIONAL THERAPIES. SHE IS A 1 ASSIST TO BSC. SHE IS A&O X4. CARDIAC DIET.
[2020-10-21] MEDS ORDERED: ACET325 PO (12:56)
[2020-10-21] MEDS ORDERED: BENZ100A PO (12:56)
[2020-10-21] MEDS ORDERED: FURO40 PO (12:57)
--- NOTE | 2020-10-21 15:00 | NUR ---
DISCHARGE SUMMARY PT DISCHARGED AT APPROX 1500. PT DC'ING TO HOME WITH DAUGHTER ON HOSPICE. [facility] PAYROLL MASTER, TOM MARIN IN FOR CONSULT PRIOR TO DC. O2 ORDERED FROM [facility], AND DELIVERED TO HOSPITAL FOR TRANSPORT HOME. DC INSTRUCTIONS DISCUSSED WITH PT AND HER DAUGHTER, INCLUDING DC MEDICATIONS AND FOLLOW UP INFO WITH HOSPICE. PT VERBALIZES UNDERSTANDING. DENIES ANY PAIN OR CONCERNS. PLEASANT AND COOPERATIVE WITH CARE. WORKED WITH PHYSICAL THERAPY TODAY. VITALS REVIEWED. PT SAFELY ESCORTED OUT VIA WC WITH DAUGHTER AND AUTO PAINTER HELPER.
== END 2020-10-21 16:03 | disposition hospice, home (50) | DRG 208 ==
LOC: ER 04:06 → ICUW 06:14 → MEDS 06:14 → ICUW 06:51 → MEDS 19:59
PROVIDERS: Student in an Organized Health Care Education/Training Program; ADMIT Internal Medicine
PROC: 0BH18EZ Insertion of Endotracheal Airway into Trachea, Via Natural or Artificial Opening Endoscopic (ICD-10-PCS; principal; 2020-10-19)
PROC: 5A1935Z Respiratory Ventilation, Less than 24 Consecutive Hours (ICD-10-PCS; 2020-10-19)
DX: J96.01 Acute respiratory failure with hypoxia (principal); I50.21 Acute systolic (congestive) heart failure; J44.1 Chronic obstructive pulmonary disease with (acute) exacerbation; N18.4 Chronic kidney disease, stage 4 (severe); I24.8 Other forms of acute ischemic heart disease; N39.0 Urinary tract infection, site not specified; Z20.822 Contact with and (suspected) exposure to COVID-19; I48.91 Unspecified atrial fibrillation; Z66 Do not resuscitate; Z51.5 Encounter for palliative care; Z86.73 Personal history of transient ischemic attack (TIA), and cerebral infarction without residual deficits; Z79.899 Other long term (current) drug therapy; Z79.82 Long term (current) use of aspirin; Z88.8 Allergy status to other drugs, medicaments and biological substances; I44.7 Left bundle-branch block, unspecified; J44.9 Chronic obstructive pulmonary disease, unspecified; I11.0 Hypertensive heart disease with heart failure
CPT/HCPCS: 31500; 31720; 36415; 36600; 51702; 71045; 80047; 80053; 81001; 82550; 82803; 83605; 83690; 83880; 84145; 84484; 85014; 85025; 85610; 87040; 87070; 87077; 87086; 87186; 87205; 93005; 93010; 93306; 94002; 94003; 96365-59; 96367-59; 96375-59; 97116; 97162; 97166; 97530; 97535; 99285-25; A9270; J0456; J0696; J1644; J1650; J1940; J2704; J2930; J3010; J7030; J7050; U0004